=== PATIENT | male | born 1980 | race Caucasian/White ===

== ENCOUNTER 2022-09-26 05:36 | Observation (INO) | payer OTHER ==
[2022-09-24 08:45] LABS: BASOPHILS % 0.5 % (0.0-1.0); EOSINOPHILS # (AUTO) 0.1 (0.0-0.4); EOSINOPHILS % 1.6 % (0.0-6.0); HEMATOCRIT 46.5 % (38.2-49.6); HEMOGLOBIN 15.8 g/dL (14.0-18.0); LYMPHOCYTES % 32.2 % (18.0-39.1); MEAN CORPUSCULAR HEMOGLOBIN 29.4 pg (28-32); MEAN CORPUSCULAR VOLUME 86.4 fL (81-99); MONOCYTES # (AUTO) 0.5 (0.2-0.8); MONOCYTES % 8.8 % (4.4-11.3); NEUTROPHILS # (AUTO) 3.5 (2.1-6.9); NEUTROPHILS % 56.6 % (38.7-80.0); PLATELET COUNT 242 x10e3/uL (140-360); RED BLOOD COUNT 5.38 x10e6/uL (4.3-5.7); RED CELL DISTRIBUTION WIDTH 13.2 % (11.7-14.4)
[2022-09-24 09:00] LABS: ANION GAP 11.1 mmol/L (8-16); CALCIUM 9.5 mg/dL (8.4-10.2); CREATININE, SERUM 0.85 mg/dL (0.72-1.25); POTASSIUM 4.1 mmol/L (3.5-5.1)
[2022-09-24 09:04] LABS: INR 0.83; PROTHROMBIN TIME 11.9 seconds (11.9-14.5)
[2022-09-24 09:05] LABS: PARTIAL THROMBOPLASTIN TIME 28.9 seconds (23.8-35.5)
[~2022-09-26] VITALS: Ht 185.4 cm; Wt 104.3 kg
[~2022-09-26 05:36] MED LIST: ACETAMINOPHEN325 M1 PO; NEURONTIN300 MG PO; TIZANIDINE HCL4 MG PO
[2022-09-26] MEDS ORDERED: LACTATED RINGER'S 1,000 ML ONE (06:28)
[2022-09-26] MEDS ORDERED: CEFAZOLIN SODIUM 2 GM ONE (06:28)
[2022-09-26] MEDS ORDERED: SODIUM CHLORIDE 0.9% 100 ML ONE (06:42)
[2022-09-26] MEDS ORDERED: FAMOTIDINE 20 MG/2 ML VIAL IV ONE (06:43)
[2022-09-26] MEDS ORDERED: THROMBIN FOR SOLN 5,000 UNIT VIAL ONE (06:50)
[2022-09-26] MEDS ORDERED: LIDOCAINE 1% W/EPINEPHRINE 20 ML VIAL ONE (06:50)
[2022-09-26] MEDS ORDERED: Vancomycin IV 1 GM VIAL ONE (06:50)
[2022-09-26] MEDS ORDERED: BUPIVACAINE 0.5%/EPI 30 ML SDV INJ ONE (07:00)
[2022-09-26] MEDS ORDERED: KETAMINE HCL INJ 50 MG/ML 10 ML VIAL ONE ×2 (07:08→12:58)
[2022-09-26] MEDS ORDERED: SUGAMMADEX SODIUM 200 MG/2 ML VIAL IV ONE (08:58)
[2022-09-26] MEDS ORDERED: HYDROCODON-ACE1 EA12 PO (09:07)
[2022-09-26] MEDS ORDERED: Morphine 4mg INJECTION 4 MG/ML INJ IM PRN (09:15)
[2022-09-26] MEDS ORDERED: HYDROMORPHONE 2MG/ML 2 MG/ML ML IV PRN (09:15)
[2022-09-26] MEDS ORDERED: ACETAMINOPHEN 325 MG TAB PO PRN (09:15)
[2022-09-26] MEDS ORDERED: PROMETHAZINE HCL (IM) 25 MG/ML VIAL IM PRN (09:15)
[2022-09-26] MEDS ORDERED: MAGNESIUM/ALUMINUM/SIMETHICONE 30 ML UDC PO PRN (09:15)
[2022-09-26] MEDS ORDERED: CEPACOL SORE THROAT LOZENGES PO PRN (09:15)
[2022-09-26] MEDS ORDERED: ZOLPIDEM TARTRATE 5 MG TAB PO PRN (09:15)
[2022-09-26] MEDS ORDERED: ONDANSETRON HCL INJ 2MG/ML 2ML 2 MG/ML VIAL IV PRN (09:15)
[2022-09-26] MEDS: FENTANYL CITRATE/PF 100MCG/2 ML INJ ONE ×2 (09:36→09:41)
[2022-09-26 10:29] VITALS: BP 147/93; PULSE 61; RESP 16; TEMP 98.4; O2SAT 96
[2022-09-26 10:38] VITALS: BP 147/93; PULSE 61; RESP 16; TEMP 98.4; O2SAT 96
[2022-09-26] MEDS: LACTATED RINGER'S 1,000 ML IV SCH (11:15)
[2022-09-26] MEDS ORDERED: SUCCINYLCHOLINE CHLORIDE 20 MG/ML 10ML VIAL ONE (12:18)
[2022-09-26] MEDS ORDERED: GLYCOPYRROLATE INJ 0.2 MG/ML VIAL ONE (12:18)
[2022-09-26] MEDS ORDERED: ROCURONIUM BROMIDE 10 MG/ML 5ML VIAL IV ONE (12:18)
[2022-09-26] MEDS ORDERED: DEXAMETHASONE SOD PHOS INJ 4 MG/ML SDV ONE (12:18)
[2022-09-26] MEDS ORDERED: SEVOFLURANE INHAL SOLN 250 ML PEN BTL ONE (12:18)
[2022-09-26] MEDS ORDERED: POVIDONE IODINE 0.05% 0.05 % ML PO ONE (12:18)
[2022-09-26] MEDS ORDERED: ONDANSETRON HCL INJ 2MG/ML 2ML 2 MG/ML VIAL ONE (12:18)
[2022-09-26] MEDS ORDERED: LIDOCAINE HCL 2% LOCAL INJ 5 ML SDV VIAL INJ ONE (12:18)
[2022-09-26] MEDS ORDERED: NEOSTIGMINE 1 MG/ML 10ML VIAL ONE (12:18)
[2022-09-26] MEDS ORDERED: PROPOFOL IV EMULSION 10 MG/ML 20 ML VIAL ONE (12:18)
[2022-09-26] MEDS ORDERED: MIDAZOLAM HCL 2 MG/2 ML VIAL ONE (12:58)
[2022-09-26] MEDS ORDERED: FENTANYL CITRATE/PF 100MCG/2 ML INJ ONE (12:58)
[2022-09-26] MEDS: CARISOPRODOL 350 MG TAB PO PRN (13:45)
[2022-09-26] MEDS: OXYCODONE/ACETAMINOPHEN 5-325 1 EACH TABLET PO PRN ×2 (13:45→20:44)
[2022-09-26 16:29] VITALS: BP 120/71; PULSE 97; RESP 20; TEMP 98.8; O2SAT 98
[2022-09-26 21:00] VITALS: BP 140/80; PULSE 99; RESP 17; TEMP 98.1; O2SAT 95
[2022-09-26 21:10] VITALS: BP 140/80; PULSE 99; RESP 17; TEMP 98.1; O2SAT 95
[2022-09-27] MEDS: LACTATED RINGER'S 1,000 ML IV SCH ×2 (00:34→04:23)
[2022-09-27] MEDS: CARISOPRODOL 350 MG TAB PO PRN (00:34)
[2022-09-27 01:06] VITALS: BP 140/80; PULSE 94; RESP 20; TEMP 98.1; O2SAT 99
[2022-09-27 05:21] VITALS: BP 148/87; PULSE 85; RESP 18; TEMP 97.8; O2SAT 97
[2022-09-27 08:00] VITALS: BP 131/88; PULSE 61; PULSE 89; RESP 21; TEMP 98.2; O2SAT 95
== END 2022-09-27 08:25 | disposition home or self-care (01) ==
LOC: OR 05:36 → PACU V 09:26 → MED/SURG 10:21
PROVIDERS: ADMIT Neurological Surgery; ATTEND Neurological Surgery
DX: M50.122 Cervical disc disorder at C5-C6 level with radiculopathy (principal); Z71.82 Exercise counseling; Z71.3 Dietary counseling and surveillance; Z01.810 Encounter for preprocedural cardiovascular examination; Z01.812 Encounter for preprocedural laboratory examination; Z01.818 Encounter for other preprocedural examination; Z20.822 Contact with and (suspected) exposure to COVID-19; Z68.30 Body mass index [BMI] 30.0-30.9, adult; Z87.891 Personal history of nicotine dependence
CPT/HCPCS: 0223U; 20931; 22551; 22845; 36415; 71046; 72040; 76000; 80048; 85025; 85610; 85730; 86850; 86900; 88304; 88311; 93005; C1713 ×2; G0378 ×2; J0330; J0690; J1100; J2001; J2250; J2405; J2704; J2710; J3010; J3370; J7050; J7121 ×2

== ENCOUNTER → 2022-10-21 | Outpatient (CLI) | payer OTHER ==
[~2022-10-21] MED LIST changes: +HYDROCODON-ACE1 EA12 PO
== END ==
LOC: RAD 10:50
PROVIDERS: ATTEND Neurological Surgery
DX: M50.20 Other cervical disc displacement, unspecified cervical region (principal); M43.22 Fusion of spine, cervical region
CPT/HCPCS: 72050